=== PATIENT | female | born 1950 | race African-American/Black ===

== ENCOUNTER 2019-07-09 17:46 | Emergency (ER) | payer MEDICARE ==
[~2019-07-09] VITALS: Ht 160 cm; Wt 104.0 kg
[2019-07-09 18:07] VITALS: BP 162/92
--- NOTE | 2019-07-09 18:57 | PHYS DOC ---
Past Medical History Past Medical History: Arthritis, Fibromyalgia, High Cholesterol, Hypertension Past Surgical History: Other Additional Past Surgical Histo: bi knee,l hip, hcl Smoking Status: Never Smoker Alcohol Use: None Adult General Chief Complaint Chief Complaint: LOWER EXT PAIN HPI HPI Patient is a 68 year old female with history of arthritis, hypertension, high cholesterol, fibromyalgia who presents to the ED today complaining of 10 out of 10 right foot pain throbbing and constant that began today. Patient denies any injury. States the pain is worse on weightbearing. Review of Systems Review of Systems Constitutional: Denies fever or chills [] Musculoskeletal: Reports right foot pain Integument: Denies rash or skin lesions [] Neurologic: Denies headache, focal weakness or sensory changes [] All other systems were reviewed and found to be within normal limits, except as documented in this note. Current Medications Current Medications Current Medications Medications (Trade) Dose Ordered Sig/Anabell Start Time Stop Time Status Last Admin Dose Admin Naproxen (Naprosyn) 500 mg 1X STAT 07/09/19 19:05 07/09/19 19:10 DC 07/09/19 19:05 500 MG Prednisone (Prednisone) 60 mg 1X ONCE 07/09/19 19:15 07/09/19 19:16 DC 07/09/19 19:15 60 MG Allergies Allergies Allergies Coded Allergies Type Severity Reaction Last Updated Verified Penicillins Allergy Intermediate hives 07/09/19 Yes Physical Exam Physical Exam Constitutional: Well developed, well nourished, no acute distress, non-toxic appearance. [] Skin: Warm, dry, no erythema, no rash. [] Back: No tenderness, no CVA tenderness. [] Extremities: Right foot with no obvious deformity. Obese patient with dry scaly skin on the feet. Trace edema to bilateral lower extremities. Diffuse tenderness on the arc of the right foot, no point tenderness today navicular bone. No tenderness the base of the fifth metatarsal. Full range of motion to the right toes and foot. +2 right pedal pulse. Neurologic: Alert and oriented X 3, normal motor function, normal sensory function, no focal deficits noted. [] Psychologic: Affect normal, judgement normal, mood normal. [] Current Patient Data Vital Signs Vital Signs Date Time Temp Pulse Resp B/P (MAP) Pulse Ox O2 Delivery O2 Flow Rate FiO2 07/09/19 18:07 97.9 72 18 162/92 (115) 96 Room Air 97.9 EKG EKG [] Radiology/Procedures Radiology/Procedures [] Course & Med Decision Making Course & Med Decision Making Pertinent Labs and Imaging studies reviewed. (See chart for details) This is a 68-year-old female patient presenting to the ED today with right foot pain that began today, no known injury. History of arthritis. Right foot x- rays interpreted by Dr. Langston no acute findings. D/c to home she reports she follows up with doctor for infusion for RA. Prescription for tramadol and Medrol Dosepak provided. Encouraged follow-up in the course of this week. Bebo wrap applied to the right foot by me, neurovascular exam is intact. Ice elevation encouraged. Dragon Disclaimer Dragon Disclaimer This electronic medical record was generated, in whole or in part, using a voice recognition dictation system. Departure Departure Impression: Primary Impression: Right foot pain Additional Impression: Arthritis Disposition: HOME, SELF-CARE Condition: STABLE Referrals: NON,STAFF (PCP) follow up with your doctor at Patient Instructions: Arthritis, Degenerative-Brief Additional Instructions: Please ice and elevate your right foot. Take the prescribed pain medicine as needed for pain. Follow-up with your doctor at hospital in the course of this week. Wear the Bebo bandage provided as tolerated. Scripts Tramadol Hcl (TRAMADOL HCL) 50 Mg Tablet 50 MG PO Q6HRS PRN for PAIN, #20 TAB Prov: ALLISON MASTERS APRN 07/09/19 Methylprednisolone (MEDROL) 4 Mg Tab.ds.pk 1 PKG PO UD, #1 PKG Prov: ALLISON MASTERS APRN 07/09/19 Problem Qualifiers ALLISON MASTERS APRN Jul 09, 2019 18:57
[2019-07-09] MEDS ORDERED: NAPROXEN 500 MG TABLET PO STA (19:05)
[2019-07-09] MEDS ORDERED: predniSONE 20 MG TABLET PO ONE (19:15)
[2019-07-09] MEDS ORDERED: METH4TAB2 PO (19:48)
[2019-07-09] MEDS ORDERED: TRAM50TA PO (19:48)
--- NOTE | 2019-07-09 22:01 | RAD ---
EXAM: AP, oblique and lateral views of the right foot DATE: 07/09/2019 6:39 PM INDICATION: Right foot pain COMPARISON: No Prior FINDINGS: Marked osteopenia. No acute fracture or dislocation. Hallux MTP joint degenerative changes are seen. Midfoot degenerative changes are seen. Calcaneal enthesopathy. IMPRESSION: Within the constraints of osteopenia, no evidence for acute fracture or dislocation. Electronically signed by: Suresh Chan MD (07/09/2019 9:59 PM) [id number]
== END 2019-07-09 20:10 | disposition home or self-care (01) ==
LOC: ER 17:46
DX: M19.071 Primary osteoarthritis, right ankle and foot (principal); E78.00 Pure hypercholesterolemia, unspecified; I10 Essential (primary) hypertension; Z88.0 Allergy status to penicillin
CPT/HCPCS: 73630; 99283; J7512